=== PATIENT | male | born 1985 | race Caucasian/White ===

== ENCOUNTER 2020-05-26 12:17 | Outpatient (REF) | payer BC, SELFPAY ==
[2020-05-26 13:24] LABS: MANUAL DIFF FLAG NO
[2020-05-26 13:29] LABS: Basophils Percent Auto 0.3 % (0-2); Eosinophils Absolute Auto 0.2 X10*3/uL (0.0-0.4); Hematocrit 45.2 % (42-52); Hemoglobin 15.6 g/dl (14.0-18.0); Imm Gran Abs Auto 0.03 X10*3/uL (0.00-0.03); Imm Gran Pct Auto 0.3 % (0.0-0.4); Lymphocytes Absolute Auto 2.5 X10*3/uL (1.2-4.9); Lymphocytes Percent Auto 25.8 % (20-40); Mean Corpuscular HGB Conc 34.5 g/dl (31.0-36.0); Mean Corpuscular Hemoglobin 30.7 pg (27.0-33.0); Mean Platelet Volume 9.8 fL (9.4-12.4); Monocytes Absolute Auto 0.7 X10*3/uL (0.1-1.2); Monocytes Percent Auto 7.2 % (2-11); Neutrophils Absolute Auto 6.3 X10*3/uL (2.0-8.3); Neutrophils Percent Auto 64.4 % (45-73); Platelet Count 276 X10*3/uL (160-400); Red Blood Count 5.08 X10*6/uL (4.60-5.80); Red Cell Distribution Width 11.9 % (11.0-16.0); White Blood Count 9.8 X10*3/uL (4.8-10.8)
[2020-05-26 14:18] LABS: Alanine Aminotransferase 24 U/L (0-40); Albumin Level 4.9 g/dL (3.5-5.0); Alkaline Phosphatase 79 U/L (39-117); Anion Gap 12 (12-20); Aspartate Amino Transferase 23 U/L (5-37); Bilirubin Total 1.5 mg/dL (0.0-1.0); Blood Urea Nitrogen 16 mg/dL (9-16); Carbon Dioxide 27 mmol/L (22-29); Chloride 106 mmol/L (96-108); Cholesterol 156 mg/dL; Estimated Glomerular Filt Rate > 60; Glucose Fasting 101 mg/dL (60-99); HDL Cholesterol 60 mg/dL; LDL Cholesterol Calculated 82 mg/dl; Potassium 4.6 mmol/l (3.3-5.1); Sodium 140 mmol/L (135-145); Total Protein 6.9 g/dL (6.5-8.0); Triglycerides 70 mg/dL
[2020-05-26 14:22] LABS: Calcium 9.6 mg/dL (8.4-10.2); Erythrocyte Sedimentation Rate 2 MM/HR (0-15)
[2020-05-26 14:39] LABS: TSH reflex Free T4 1.25 mIU/mL (0.32-4.0)
== END 2020-05-26 12:18 | disposition home or self-care (01) ==
LOC: HO.WFDLDS 12:17
PROVIDERS: PCP Family Medicine; Visit Provider Family Medicine
DX: Z00.00 Encounter for general adult medical examination without abnormal findings (principal); M25.641 Stiffness of right hand, not elsewhere classified; M70.21 Olecranon bursitis, right elbow
CPT/HCPCS: 36415; 80053; 80061; 84443; 85025; 85652

== ENCOUNTER 2020-09-23 16:32 | Outpatient (REF) | payer BC, SELFPAY ==
--- NOTE | ~2020-09-23 | US_ITS ---
EXAMINATION: US ABDOMEN LIMITED CLINICAL INFORMATION: Epigastric swelling, mass or lump. COMPARISON: None TECHNIQUE: Real-time imaging of the substernal area just inferior to the xiphoid process. FINDINGS: There is a defect in the fascia and hypoechoic soft tissue seen suggestive of a small hernia. This measures 1 x 0.7 cm in transverse and longitudinal dimension just inferior to the xiphoid. US/US abdomen limited IMPRESSION: Small subxiphoid hernia.
== END 2020-09-23 16:33 | disposition home or self-care (01) ==
LOC: HO.US 16:32
PROVIDERS: PCP Family Medicine; Visit Provider Family Medicine
DX: R19.06 Epigastric swelling, mass or lump (principal)
CPT/HCPCS: 76705

== ENCOUNTER → 2021-01-27 15:02 | Outpatient (BNVA) | payer OTHER, SELFPAY | PROVIDERS: PCP Family Medicine; Referring Provider Family Medicine; Visit Provider Surgery ==

== ENCOUNTER → 2021-12-21 12:57 | Outpatient (BNVA) | payer OTHER, SELFPAY | PROVIDERS: Referring Provider Family Medicine; Visit Provider Surgery | DX: K43.9 Ventral hernia without obstruction or gangrene (principal) ==

== ENCOUNTER 2022-01-24 05:50 | Day surgery (SDC) | payer OTHER, MEDICAID, SELFPAY ==
[2022-01-18 10:02] VITALS: BMI 23.8
--- NOTE | 2022-01-23 09:22 | HO.ANESPROP2 ---
Documented by User: Angela Hamilton NP 01/23/22 09:22 HPI - Anesthesia Eval Consult details Narrative: 36yo M for Hernia Repair Epigastric,poss mesh [facility] Active Problems Active Problems: All Active Problems (Updated 08/31/21 @ 10:52 by Gemma Owens, DAVID) Annual physical exam (Acute) IBD (inflammatory bowel disease) (Acute) Elevated fasting blood sugar (Acute) Left hand weakness (Acute) Pre-diabetes (Acute) Abdominal wall mass of epigastric region (Acute) Abdominal wall hernia (Acute) Epigastric hernia (Acute) Smoker (Acute) Past Medical History Medical History IBD (inflammatory bowel disease) Pre-diabetes Family History Family History Father HTN (hypertension) Mother No problems noted. Maternal Grandmother Diabetes mellitus Maternal Grandfather Cancer Paternal Grandmother No problems noted. Paternal Grandfather Cancer Brother No problems noted. Sister No problems noted. Sister No problems noted. Sister No problems noted. Daughter No problems noted. Surgical History Surgical History History of surgery History of surgery on arm Social History Social History Patient Tobacco Use Status: Current everyday Tobacco user Tobacco use type: Cigarette Cigarette Packs Per Day: 1 Cigarettes Per Day: 20.0 Meds Allergies Allergy/AdvReac Type Severity Reaction Status Date / Time No Known Allergies Allergy Verified 01/17/22 16:03 Exam Exam Date and Time: January 23, 202222 Height,Weight and Vital Signs: Height 5 ft 11 in Weight 77.564 kg Assessment and Plan Assessment Anesthesia Assessment: Chart Reviewed Documented by User: Luis Manuel Kuhn MD 02/02/22 17:03 [facility] Past Medical History Medical History IBD (inflammatory bowel disease) Pre-diabetes Family History Family History Father HTN (hypertension) Mother No problems noted. Maternal Grandmother Diabetes mellitus Maternal Grandfather Cancer Paternal Grandmother No problems noted. Paternal Grandfather Cancer Brother No problems noted. Sister No problems noted. Sister No problems noted. Sister No problems noted. Daughter No problems noted. Family history of problems with anesthesia: No Surgical History Surgical History History of surgery History of surgery on arm History of Problems with Anesthesia: No Social History Social History Patient Tobacco Use Status: Current everyday Tobacco user Tobacco use type: Cigarette Cigarette Packs Per Day: 1 Cigarettes Per Day: 20.0 Meds Allergies Allergy/AdvReac Type Severity Reaction Status Date / Time No Known Allergies Allergy Verified 01/17/22 16:03 Exam Airway Mallampati Class: II TM Dist: >3cm Neck ROM: Full Loose/Missing/Broken Teeth: Yes (Chipped , discoloured and poor dentition ) Heart: rrr Lungs: clear Assessment and Plan Assessment Anesthesia Assessment: Anesthesia Plan Discussed Final Anesthetic Review Family History of Problems with Anesthesia: No History of Problems with Anesthesia: No NPO: Yes ASA Class: II Final Preanesthetic Review: Meds/Allgs Chart Reviewed, Consent Obtained/Reviewed and Anes Risks/Benef Reviewed Patient Risk: Intermediate Procedure Risk: Intermediate Anesthetic Plan Anesthetic Plan: GA Disposition: Standard PACU
[2022-01-24] VITALS (7 sets, daily range): BP systolic 135–148; BP diastolic 81–104; PULSE 60–77; RESP 16; TEMP 36.3–36.6; O2SAT 97–100; BMI 25.7
[2022-01-24] MEDS: Lactated Ringers 1,000 ML 100 ML IVCONT (06:35)
--- NOTE | 2022-01-24 07:18 | MHC.SHP ---
Pre-Procedural Eval Section A Date of Service: 01/24/22 Section B Chief Complaint: Ventral hernia without obstruction or gangrene Details of Present Illness: has partially reducible mass on epig area Relevant Family History (Specify if Yes): No Relevant Social History: None Present Medications: see Short Stay Collaborative assessment Medical History: Significant History (prediabetes, smoker) History of Previous Operations: No relevant previous surgery Allergies: Allergies Allergy/AdvReac Type Severity Reaction Status Date / Time No Known Allergies Allergy Verified 01/17/22 16:03 Review of Systems Sugical H&P ROS: Negative: Constitution, Cardiovascular, Respiratory, Neurological, Psychiatric, Hem-Onc, Allergic/Immunologic, Gastrointestinal, Genitourinary, Musculoskeletal, Integumentary, Endocrine and Eyes/Ears/Nose/Throat Exam Surgical H&P Exam: Normal: HEENT, Normal: Heart, Normal: Lungs, Normal: Extremities, Normal: Skin and Normal: Neurological and Significant Findings: Abdomen (epig hernia) Plan Diagnosis/Plan: Unchanged I have reviewed the history and physical and performed a pertinent physical examination on my patient. No changes have occurred unless specified.
--- NOTE | 2022-01-24 08:13 | P.OP_ITS ---
Operative Note Operative Note Date of Service: 01/24/22 Narrative: Preop diagnosis: Epigastric hernia Postop diagnosis: Epigastric hernia Procedure: Repair of an epi gastric hernia with Ventralex mesh Surgeon: Randy Betts senior assistant manager: DAVID Jarrell The patient is a 36-year-old male with a epigastric hernia. He wanted to proceed with repair. He understood technique of repair with mesh. He is aware of the risks, benefits, and alternatives He was brought to the operating room. He was placed supine under general seizure via laryngeal mask airway. The upper abdomen was prepped and draped in the usual sterile fashion. A surgical time-out was done. The patient received cefazolin 2 g IV preoperatively. I infiltrated the planned line of incision with lidocaine 1%. I made the incision with a 15. And this was carried down through the full-thickness of the and skin subcutaneous fat. The hernia was then visualized. This was fat containing. I sharply dissected the hernia off of the rest of subcutaneous layer using Metzenbaum scissors all the way down to the fascia. I gently dissected the hernia and this from the fascial edges until this was completely reduced. The fascial defect was about 1 cm in diameter. I used a small-sized Ventralex mesh and position this under the fascia. This was flattened. I secured the Prolene straps of the mesh with Prolene 2 sutures to the fascial edge. I trimmed both Prolene straps flush on the fascial level. I then closed the fascia with the [id number] and 1 stitch. I regain 8 id. The subcutaneous layer was reapposed with Dexon 3-0 interrupted sutures. Skin closure was achieved with Dexon 4-0 subcuticular running stitch. The area was infiltrated with Marcaine 0.5% for postop analgesia. Steri-Strips and dressings were applied. The procedure was then completed. The patient tolerated procedure well. There were no complications noted. Initial final counts of sponges and instruments were correct. Estimated blood loss about 2 cc The patient was extubated without difficulty and transferred to the recovery room with stable vital signs.
[2022-01-24] MEDS: oxyCODONE HCl Immed Release 5 MG TABLET 10 MG PO (09:09)
== END 2022-01-24 10:11 | disposition home or self-care (01) ==
PROVIDERS: PCP Family Medicine; Visit Provider Surgery
PROC: (CPT 49570; principal; 2022-01-24 07:30)
DX: K43.9 Ventral hernia without obstruction or gangrene (principal); K52.3 Indeterminate colitis; R73.03 Prediabetes; F17.210 Nicotine dependence, cigarettes, uncomplicated
CPT/HCPCS: 49570; C1781; J0330; J0690; J1100; J2250; J2405; J3010

== ENCOUNTER 2022-11-02 09:57 | Outpatient (REF) | payer OTHER, SELFPAY ==
[2022-11-02 11:13] LABS: MANUAL DIFF FLAG NO
[2022-11-02 11:21] LABS: Basophils Absolute Auto 0.1 X10*3/uL (0.0-0.2); Basophils Percent Auto 0.9 % (0-2); Eosinophils Absolute Auto 0.2 X10*3/uL (0.0-0.4); Eosinophils Percent Auto 2.3 % (0-4); Hematocrit 42.5 % (42.0-52.0); Hemoglobin 14.7 g/dl (14.0-18.0); Imm Gran Abs Auto 0.02 X10*3/uL (0.00-0.03); Imm Gran Pct Auto 0.3 % (0.0-0.4); Lymphocytes Absolute Auto 2.1 X10*3/uL (1.2-4.9); Lymphocytes Percent Auto 29.8 % (20-40); Mean Corpuscular HGB Conc 34.6 g/dl (31.0-36.0); Mean Corpuscular Hemoglobin 31.9 pg (27.0-33.0); Mean Corpuscular Volume 92.2 fL (80.0-98.0); Mean Platelet Volume 10.5 fL (9.4-12.4); Monocytes Absolute Auto 0.7 X10*3/uL (0.1-1.2); Monocytes Percent Auto 9.7 % (2-11); Neutrophils Absolute Auto 3.9 x10*3/uL (2.0-8.3); Platelet Count 275 X10*3/uL (160-400); Red Blood Count 4.61 X10*6/uL (4.60-5.80); Red Cell Distribution Width 12.5 % (11.0-16.0); White Blood Count 6.9 X10*3/uL (4.8-10.8)
[2022-11-02 12:21] LABS: Alanine Aminotransferase 29 U/L (0-40); Albumin Level 4.6 g/dL (3.5-5.0); Alkaline Phosphatase 95 U/L (39-117); Anion Gap 12 (12-20); Aspartate Amino Transferase 39 U/L (5-37); Blood Urea Nitrogen 17 mg/dL (9-16); Calcium 9.5 mg/dL (8.4-10.2); Carbon Dioxide 26 mmol/L (22-29); Chloride 107 mmol/L (96-108); Estimated Glomerular Filt Rate > 60; Glucose Random 95 mg/dL (60-115); Lipase 49 U/L (8-78); Potassium 4.3 mmol/L (3.3-5.1); Sodium 141 mmol/L (135-145); Total Protein 6.7 g/dL (6.5-8.0)
[2022-11-02 12:27] LABS: TSH reflex Free T4 0.88 uIU/mL (0.32-4.0)
== END 2022-11-02 09:58 | disposition home or self-care (01) ==
LOC: HO.WFDLDS 09:57
PROVIDERS: Visit Provider Family Medicine
DX: Z00.00 Encounter for general adult medical examination without abnormal findings (principal); R10.9 Unspecified abdominal pain; F10.10 Alcohol abuse, uncomplicated
CPT/HCPCS: 36415; 80053; 83690; 84443; 85025

== ENCOUNTER 2022-11-24 16:31 | Outpatient (REF) | payer OTHER, MEDICAID, SELFPAY ==
--- NOTE | ~2022-11-24 | US_ITS ---
EXAMINATION: US ABDOMEN LIMITED CLINICAL INFORMATION: Abdominal wall pain at lateral aspect of rectus abdominus muscle. Rule out hernia. COMPARISON: Ultrasound abdomen limited 09/23/2020. TECHNIQUE: Real-time imaging of the left lower quadrant lateral to umbilicus. FINDINGS: No sonographic correlate to the reported symptom of abdominal pain in the left lower quadrant. No evidence of hernia. No lymphadenopathy. US/US abdomen limited IMPRESSION: No soft tissue abnormality to correspond to the area of pain. No hernia.
== END 2022-11-24 16:32 | disposition home or self-care (01) ==
LOC: HO.US 16:31
PROVIDERS: PCP Family Medicine; Visit Provider Family Medicine
DX: R10.9 Unspecified abdominal pain (principal)
CPT/HCPCS: 76705

== ENCOUNTER 2023-09-26 08:37 | Outpatient (AMB) | payer OTHER, SELFPAY ==
[2023-09-26 08:38] VITALS: BP 148/84; PULSE 96; O2SAT 97; BMI 26.1
--- NOTE | 2023-09-26 08:38 | A.OFFPC_ITS ---
Vital Signs 09/26/23 08:38 Height 5 ft 11 in Weight 187 lb 2 oz BMI 26.1 BP 148/84 H Blood Pressure Location Lt brachial Position Sitting Pulse 96 Pulse Source Pulse Oximeter Pulse Oximetry (%) 97 Oxygen Delivery Method Room Air Intake Visit Reasons: Ear Pain / Discomfort Intake Note: Patient is here with bilateral ear pain, started with left ear, then went to the right. He states it started in April. Allergies No Known Allergies Allergy (Verified 09/26/23 08:43) Tobacco use date assessed: 09/26/23 Dental Screening Dental Screen Date: 09/26/23 Did you have a dental visit in the last 12 months?: Yes Did you have a dental problem in the last 6 months where you did not have access to dental care?: No Was dental information given to patient?: Patient has dentist HPI Ear Pain / Discomfort HPI Details 38 y/o male presents today with complain ts of bilateral ear pain. Pt notes symptoms started April. Blood pressure today 148/84. He reports he has not been taking his lisinopril 20mg. PFSH Medical History Ankle fracture, left IBD (inflammatory bowel disease) Pre-diabetes Epigastric hernia Smoker Surgical History History of hernia repair History of surgery History of surgery on arm Family History Father HTN (hypertension) Mother No problems noted. Maternal Grandmother Diabetes mellitus Maternal Grandfather Cancer Paternal Grandmother No problems noted. Paternal Grandfather Cancer Brother No problems noted. Sister No problems noted. Sister No problems noted. Sister No problems noted. Daughter Noemí Frommel syndrome Social History Housing: Apartment Patient Tobacco Use Status: Current everyday Tobacco user Tobacco use type: Cigarette Cigarette Packs Per Day: 1 Cigarettes Per Day: 10 e-Cigarette/Vaping Use: Never Used service: No Current occupational status: employed Cognitive needs: No Hearing needs: No Vision needs: No Questionnaire PHQ-9 Over the last 2 weeks, how often have you been bothered by any of the following problems? 1. Little interest or pleasure in doing things: not at all 2. Feeling down, depressed, or hopeless: not at all 3. Trouble falling or staying asleep, or sleeping too much: not at all 4. Feeling tired or having little energy: not at all 5. Poor appetite or overeating: not at all 6. Feeling bad about yourself - or that you are a failure or have let yourself or your family down: not at all 7. Trouble concentrating on things, such as reading the newspaper or watching television: not at all 8. Moving or speaking so slowly that other people could have noticed. Or the opposite - being so fidgety or restless that you have been moving around a lot more than usual: not at all 9. Thoughts that you would be better off or of hurting yourself in some way: not at all Total score: 0 Depression Screening Interpretation: Negative Depression Screening Done: Yes 82652 - PHQ-9 Billing: Yes Source: Developed by Drs. Robbie Lindsay, Chichi Andrade, Tee Nettles and colleagues, with an educational sanchez from [employer]. Thrive Questionnaire Date Thrive assessed: 09/26/23 I am a: Patient What is your living situation today?: I have a steady place to live Within the past 12 months, did the food you bought not last and you didn't have the money to get more?: Never true Within the past 12 months, did you worry whether your food would run out before you got money to buy more?: Never true Do you have trouble paying for medicines?: No Do you have trouble getting transportation to medical appointments?: No Do you have trouble paying your heating and electricity bill?: No Do you have trouble taking care of your child, family member or friend?: No Do you have trouble with day-to-day activities such as bathing, preparing meals, shopping, managing finances, etc.?: No Are you currently unemployed and looking for a job?: No Are you interested in more education?: No THRIVE Score: 0 AUDIT C Alcohol Use Questionnaire (AUDIT-C) 1. How often do you have a drink containing alcohol?: 2-3 times a week 2. How many drinks containing alcohol do you have on a typical day when you are drinking?: 5 or 6 3. How often do you have six or more drinks on one occasion?: Never Total Score: 5 CHANCE-7 AMB Questionnaire CHANCE-7 Date CHANCE - 7 assessed: 09/26/23 Feeling nervous, anxious, or on edge: 0 = Not at all Not being able to stop or control worryin = Not at all Worrying too much about different things: 0 = Not at all Trouble relaxin = Not at all Being so restless that it is hard to sit still: 0 = Not at all Becoming easily annoyed or irritable: 0 = Not at all Feeling afraid as if something awful might happen: 0 = Not at all Total CHANCE-7 score (0-4 normal; 5-9 mild; 10-14 moderate; 15-21 severe): 0 Source: Developed by Drs. Robbie Lindsay, Chichi Andrade, Tee Nettles and colleagues, with an educational sanchez from [employer]. CHANCE-7 Assessment Billing CHANCE-7 Assessment Tool: CHANCE-7 Assessment 92250 Review of Systems Const Denies chills, Denies fatigue, Denies fever(s), Denies headache(s) and Denies weakness ENT Denies dizziness and Denies headache(s) Card Denies dyspnea Resp Denies cough, Denies dyspnea, Denies wheezing and Denies other (shortness of breath) Musc Denies numbness and Denies tingling Neuro Denies dizziness, Denies headache(s), Denies numbness, Denies tingling and Denies weakness Psych Denies anxiety and Denies depression Endo Denies fatigue Aller/Immun Denies wheezing Physical exam (Primary Care) Vital Signs: Last Vital Signs Pulse 96 09/26/23 08:38 BP 148/84 H 09/26/23 08:38 Pulse Ox 97 09/26/23 08:38 Oxygen Delivery Method Room Air 09/26/23 08:38 BMI result Body Mass Index 26.1 Tobacco/Smoking Status: Tobacco use Status Tobacco use date assessed 09/26/23 09/26/23 08:54 Patient Tobacco Use Status Current everyday Tobacco 09/26/23 08:54 Tobacco use type Cigarette 09/26/23 08:54 e-Cigarette/Vaping Use Never Used 09/26/23 08:54 PHQ-9: PHQ-9 Score PHQ-9: Total score 0 09/26/23 09:00 Depression Screening Interpretation: Negative Thrive Assessment: Date of Thrive Assessment Date Thrive assessed 09/26/23 09/26/23 08:54 Const General: well developed; No acute distress Nutritional Appearance: well nourished Orientation/consciousness: patient oriented x3 HENMT Head: Yes normocephalic and Yes atraumatic Eyes General: appearance normal, both eyes and all related structures Pupils: Equal, round and reactive pupils present EOM: EOMs intact bilaterally Resp Effort & Inspection: normal respiratory effort Neuro General: patient oriented x3 and gait normal Cranial nerves: Yes Equal, round and reactive pupils present Psych Affect: normal affect Assessment and Plan Assessment & Plan (1) Ear pain: Code(s): H92.09 - Otalgia, unspecified ear Plan: Likely?mild?cellulitis?of?outer?ears Will?give?him?a?script?for?mupirocin Call?or?return?to?office?if?not?improving (2) Hypertension: Code(s): I10 - Essential (primary) hypertension Plan: Patient?has?not?been?taking?lisinopril.??Needs?refill.??Blood?pressure?is?above? goal?of?less?than?140/90 Refilled?lisinopril Follow-up?in?a?few?months. Medications: New mupirocin 2% 1 appl topical BID 15 grams 0RF 14 days Refilled lisinopril 20 mg PO DAILY 30 tabs 2RF 30 days Coding Level of Care Code Est Pt Level 3 (20221) Diagnoses Ear pain H92.09 Hypertension I10 Additional Codes CHANCE-7 Assessment Billing - CHANCE-7 Assessment Tool: CHANCE-7 Assessment 08339 ([id number])
== END 2023-09-26 09:06 | disposition home or self-care (01) ==
PROVIDERS: PCP Family Medicine; Visit Provider Family Medicine
DX: H92.09 Otalgia, unspecified ear (principal); I10 Essential (primary) hypertension
CPT/HCPCS: 99213